=== PATIENT | female | born 1945 | race Caucasian/White ===

== ENCOUNTER 2021-07-19 21:19 | Inpatient (IN) | payer BC ==
[~2021-07-19] VITALS: Ht 154.9 cm; Wt 46.9 kg
--- NOTE | 2021-07-19 21:37 | NUR ---
Dr. Campa at bedside for MSE
[2021-07-19] MEDS ORDERED: IV NORMAL SALINE 1000 ML BAG IV ONE (22:00)
[2021-07-19] MEDS ORDERED: MORPHINE SULFATE 2 MG/1 ML DISP.SYRIN IV ONE (22:00)
[2021-07-19] MEDS ORDERED: ONDANSETRON 4 MG/2 ML VIAL IV ONE (22:00)
--- NOTE | 2021-07-19 22:02 | NUR ---
IV started and labs drawn. Pt tolerated well.
[2021-07-19] MEDS ORDERED: MORPHINE SULFATE 2 MG/1 ML DISP.SYRIN ONE (22:13)
[2021-07-19] MEDS ORDERED: ONDANSETRON 4 MG/2 ML VIAL ONE (22:14)
--- NOTE | 2021-07-19 22:22 | NUR ---
Morphine and Zofran given. Pt tolerated medications well with no adverse reactions.
[2021-07-19 22:23] LABS: HEMATOCRIT 42.7 % (31.2-41.9); MEAN CORPUSCULAR VOLUME 87.2 fL (75.5-95.3); PLATELET COUNT (AUTO) 235 K/uL (179-408)
[2021-07-19 22:34] LABS: CARBON DIOXIDE 28 mmol/L (21-32); CHLORIDE 99 mmol/L (98-107); CREATININE 0.8 mg/dL (0.6-1.3); GLUCOSE 98 mg/dL (74-106); POTASSIUM 3.7 mmol/L (3.5-5.1); UREA NITROGEN, BLOOD 17 mg/dL (7-18)
[2021-07-19 22:43] LABS: ALANINE AMINOTRANSFERASE 26 U/L (14-59); ALKALINE PHOSPHATASE 87 U/L (50-136); ASPARTATE AMINOTRANSFERASE 43 U/L (15-37); BILIRUBIN,DIRECT 0.4 mg/dL (0.0-0.2); BILIRUBIN,TOTAL 2.5 mg/dL (0.2-1.0); TOTAL PROTEIN, SERUM 7.5 g/dL (6.4-8.2)
[2021-07-19 22:47] LABS: THYROID STIMULATING HORMONE 0.832 mIU/mL (0.358-3.740)
--- NOTE | 2021-07-19 22:50 | NUR ---
Called to page director of national sales Ortho, line is busy.
--- NOTE | 2021-07-19 23:00 | NUR ---
Called again for front counter attendant ortho, line is still busy.
--- NOTE | 2021-07-20 00:02 | NUR ---
Paged Geeta Terry NP for [facility].
[2021-07-20] MEDS ORDERED: ONDANSETRON 4 MG/2 ML VIAL IV PRN (00:15)
[2021-07-20] MEDS ORDERED: REMEDY ESSENTIAL ZINC PASTE 113 GM TP PRN (00:15)
[2021-07-20] MEDS ORDERED: MAGNESIUM HYDROXIDE 30 ML LIQUID UDC PO PRN (00:15)
[2021-07-20] MEDS ORDERED: IV D5 1/2 NS 1000 ML 1,000 ML IV PRN (00:15)
--- NOTE | 2021-07-20 00:25 | NUR ---
Watters catheter inserted with sterile technique.
--- NOTE | 2021-07-20 00:47 | NUR ---
Med surg bed assigned 310 to Dahiana VERA
--- NOTE | 2021-07-20 00:59 | NUR ---
Gave report to Dahiana VERA
[2021-07-20 01:15] LABS: *BILIRUBIN,URIN NEGATIVE (NEGATIVE); *BLOOD, URINE 2+ (NEGATIVE); *CLARITY,URINE CLEAR (CLEAR); *COLOR,URINE YELLOW (YELLOW); *KETONES,URINE 3+ (NEGATIVE); *UROBILINOGEN,URINE 0.2 E.U./dl (NORMAL); LEUKOCYTE ESTERASE ,URINE NEGATIVE (NEGATIVE); NITRITE, URINE NEGATIVE (NEGATIVE); PH,URINE 5.5 (5.0-8.0); UGLUCOSE NEGATIVE (NEGATIVE)
--- NOTE | 2021-07-20 02:01 | NUR ---
Pt. admitted to [facility] room 310, under care of Geeta Terry MILL HELPER Belongs List completed. Transported in stable condition. No distress noted. No changes in LOC during transfer.
--- NOTE | 2021-07-20 02:04 | NUR ---
Received pt from er via [employer]. Under the care of Geeta Terry DNP. Dx: Femur Fracture. Pt in no acute distress. Pt awake, alert and orientedx4. Pt have gonzalez catheter inserted in ER. Pt on room air. FPC assessment done. Pt know she's on NPO. Admission process and care plan initiated. Belonging list done. Safety and comfort provided. Will continue to monitor.
[2021-07-20 02:21] VITALS: BP 95/44
[2021-07-20] MEDS: MORPHINE SULFATE 2 MG/1 ML DISP.SYRIN IV PRN ×2 (03:21→22:15)
--- NOTE | 2021-07-20 04:37 | NUR ---
at 0310h pt was given Morphine sulfate inj 1mg for left hip pain. Pt tolerated it well. After an hour pt stated it helps but there still pain. Will continue to monitor.
[2021-07-20 04:53] VITALS: BP 108/57
--- NOTE | 2021-07-20 06:23 | NUR ---
Pt slept intermittently. Pt in no acute distress. Iv intact. Safety and comfort provided. Will endorse to incoming nurse for continuity of care.
[2021-07-20 06:37] LABS: HEMATOCRIT 34.4 % (31.2-41.9); MEAN CORPUSCULAR HEMOGLOBIN 30.2 uug (24.7-32.8); PLATELET COUNT (AUTO) 185 K/uL (179-408)
[2021-07-20 07:16] LABS: BILIRUBIN,TOTAL 1.4 mg/dL (0.2-1.0); CREATININE 0.7 mg/dL (0.6-1.3); MAGNESIUM 2.2 mg/dL (1.8-2.4); POTASSIUM 3.2 mmol/L (3.5-5.1); TOTAL PROTEIN, SERUM 5.8 g/dL (6.4-8.2)
[2021-07-20 07:23] LABS: THYROID STIMULATING HORMONE 0.976 mIU/mL (0.358-3.740)
[2021-07-20] MEDS: PANTOPRAZOLE SODIUM 40 MG VIAL IV SCH (09:03)
[2021-07-20 09:22] LABS: BACTERIA,URINE FEW /HPF (NONE SEEN); SQUAMOUS EPITHELIAL CELL,UR FEW /HPF (NONE SEEN); WBC,URINE NONE SEEN /HPF (0-3)
[2021-07-20] MEDS ORDERED: POTASSIUM CHLORIDE 20 MEQ TAB.PRT.SR PO ONE (10:15)
[2021-07-20 11:59] VITALS: BP 106/54
[2021-07-20] MEDS: POTASSIUM CHLORIDE 10 MEQ, LIDOCAINE-MPF 1% 1 ML in IV DEXTROSE 5% 100 ML IV SCH ×2 (12:16→13:24)
[2021-07-20 16:49] VITALS: BP 103/51
[2021-07-20] MEDS: IV D5 1/2 NS 1000 ML 1,000 ML IV PRN (17:44)
--- NOTE | 2021-07-20 19:30 | NUR ---
Received pt awake , alert and orientedx4. Pt in no acute distress. Iv intact. safety and comfort provided. Will continue to monitor.
[2021-07-20 20:41] VITALS: BP 131/55
--- NOTE | 2021-07-20 23:50 | NUR ---
Pt given Morphine 1mg prn at 2215H for pain . Pt tolerated it well. After an hour pt stated it felt ab bit better but there's still pain. Will continue to monitor.
[2021-07-21] MEDS: ACETAMINOPHEN 325 MG TABLET PO PRN (00:19)
--- NOTE | 2021-07-21 00:19 | NUR ---
Pt given Tylenol 650 mg prn as per pt is still in pain. Pt tolerated it well. Will continue to monitor.Npo for pt after given the pain medications.
[2021-07-21] MEDS: IV D5 1/2 NS 1000 ML 1,000 ML IV PRN ×2 (04:35→20:44)
[2021-07-21 05:04] VITALS: BP 106/54
--- NOTE | 2021-07-21 06:48 | NUR ---
Pt shows no signs of acute distress. Pt on room air. Iv intact. Prescribed medication given and pt tolerated it well. Safety and comfort provided. All needs are met. Will endorse to incoming nurse for continuity of care.
[2021-07-21] MEDS ORDERED: ROCURONIUM BROMIDE 50 MG/5 ML VIAL ONE (07:12)
[2021-07-21] MEDS ORDERED: MIDAZOLAM HCL 2 MG/2 ML VIAL ONE (07:12)
[2021-07-21] MEDS ORDERED: FENTANYL CITRATE 100 MCG/2 ML AMPUL ONE (07:12)
[2021-07-21 07:30] LABS: HEMATOCRIT 31.9 % (31.2-41.9); MEAN CORPUSCULAR HEMOGLOBIN 31.1 uug (24.7-32.8); MEAN CORPUSCULAR VOLUME 87.8 fL (75.5-95.3); PLATELET COUNT (AUTO) 156 K/uL (179-408)
--- NOTE | 2021-07-21 07:33 | NUR ---
PT WENT TO OR VIA BED FOR SURGERY IN STABLE CONDITION
[2021-07-21] MEDS ORDERED: BUPIVACAINE 0.25% 30 ML VIAL ONE (07:38)
[2021-07-21 07:46] LABS: CREATININE 0.8 mg/dL (0.6-1.3); MAGNESIUM 2.1 mg/dL (1.8-2.4); POTASSIUM 3.6 mmol/L (3.5-5.1)
[2021-07-21] MEDS: PANTOPRAZOLE SODIUM 40 MG VIAL IV SCH (08:25)
[2021-07-21] MEDS ORDERED: ONDANSETRON 4 MG/2 ML VIAL IV ONE (10:06)
[2021-07-21] MEDS ORDERED: LIDOCAINE-MPF 2% 5 ML VIAL IJ ONE (10:06)
[2021-07-21] MEDS ORDERED: GLYCOPYRROLATE 0.2 MG/ML VIAL IJ ONE (10:06)
[2021-07-21] MEDS ORDERED: PROPOFOL 200 MG/20 ML BOTTLE IV ONE (10:06)
[2021-07-21] MEDS ORDERED: SEVOFLURANE 250 ML BOTTLE IH ONE (10:06)
[2021-07-21] MEDS ORDERED: METOCLOPRAMIDE HCL 10 MG/2 ML VIAL IV ONE (10:06)
[2021-07-21] MEDS ORDERED: NEOSTIGMINE METHYLSULFATE 10 MG/10 ML VIAL IM ONE (10:06)
[2021-07-21] MEDS ORDERED: CEFAZOLIN 1 G VIAL IM ONE (10:06)
[2021-07-21] MEDS ORDERED: MEPERIDINE 25 MG/1 ML DISP.SYRIN ONE (10:31)
[2021-07-21 11:29] LABS: HEMATOCRIT 36.9 % (31.2-41.9)
[2021-07-21 11:40] VITALS: BP 139/44
--- NOTE | 2021-07-21 11:40 | NUR ---
PT RECEIVED FROM RECOVERY ROOM IN STABLE CONDITION.VS ARE STABLE
[2021-07-21 11:55] VITALS: BP 119/50
[2021-07-21 12:45] VITALS: BP 137/55
[2021-07-21 13:32] LABS: THYROID STIMULATING HORMONE 0.01 mIU/mL (0.358-3.740)
[2021-07-21] MEDS: HYDROCODONE/APAP 5-325MG TABLET PO PRN (14:10)
[2021-07-21] MEDS ORDERED: NEUTRA PHOS PACKET PO ONE (15:15)
[2021-07-21] MEDS: CEFAZOLIN 1 G in IV DEXTROSE 5% 50 ML IV SCH ×2 (15:35→23:33)
[2021-07-21 16:00] VITALS: BP 102/58
[2021-07-21] MEDS: RIVAROXABAN 10 MG TABLET PO SCH (17:07)
[2021-07-21 20:00] VITALS: BP 108/48
[2021-07-21] MEDS: MORPHINE SULFATE 2 MG/1 ML DISP.SYRIN IV PRN (22:05)
[2021-07-22 04:00] VITALS: BP 123/59
[2021-07-22] MEDS: HYDROCODONE/APAP 5-325MG TABLET PO PRN ×2 (06:02→22:39)
[2021-07-22 07:14] LABS: HEMATOCRIT 31.3 % (31.2-41.9); MEAN CORPUSCULAR HEMOGLOBIN 30.6 uug (24.7-32.8); MEAN CORPUSCULAR VOLUME 87.6 fL (75.5-95.3); PLATELET COUNT (AUTO) 200 K/uL (179-408)
[2021-07-22 07:28] LABS: CREATININE 0.8 mg/dL (0.6-1.3); POTASSIUM 3.5 mmol/L (3.5-5.1)
--- NOTE | 2021-07-22 07:30 | NUR ---
Received patient in bed awake, alert and oriented times4. Pt is on room air. No sign of discuss noted at this time. Safety precautions implemented. Will continue to monitor.
[2021-07-22] MEDS: PANTOPRAZOLE SODIUM 40 MG VIAL IV SCH (08:23)
[2021-07-22] MEDS: MORPHINE SULFATE 2 MG/1 ML DISP.SYRIN IV PRN (08:24)
[2021-07-22] MEDS: IV D5 1/2 NS 1000 ML 1,000 ML IV PRN ×2 (10:29→22:43)
[2021-07-22 12:19] VITALS: BP 114/47
[2021-07-22 17:13] VITALS: BP 109/46
[2021-07-22] MEDS: RIVAROXABAN 10 MG TABLET PO SCH (17:54)
[2021-07-22 20:15] VITALS: BP 125/56
[2021-07-23] MEDS: MORPHINE SULFATE 2 MG/1 ML DISP.SYRIN IV PRN ×2 (01:39→05:07)
[2021-07-23] MEDS ORDERED: LORAZEPAM 2 MG/1 ML VIAL IV ONE (01:45)
[2021-07-23] MEDS ORDERED: HALOPERIDOL LACTATE 5 MG/1 ML VIAL IM ONE (02:00)
[2021-07-23] MEDS ORDERED: HALOPERIDOL DECANOATE 50 MG/1 ML AMPUL IM ONE (02:00)
--- NOTE | 2021-07-23 03:17 | NUR ---
Awake alert and oriented x 3-4 upon initial rounds. Patient S/P left hip IM nailing (07/21) by Dr Ballesteros. IVF's infusing well via left arm heplock. IV got infiltrated #20 Rt INT inserted. Complained of pain Peculiar 1 tab given as ordered. Needs attended. Incontinent of urine x2. Kept clean and dry.VSS. At around 0030 patient gets confused and agitated. Dr Robles aware. Ativan ordered but d/c'ed Patient pulled IV out. Haldol 2.5 mg given IM once. Will monitor patient. Patient calm and quiet and fall asleep. Bed alarm on.
--- NOTE | 2021-07-23 05:08 | NUR ---
addendum: ,orphine not given, no IV access. Addendum: 07/23/21 at 0623 by JOSE LUIS PATEL RN Morphine not given, no IV access
[2021-07-23] MEDS: PANTOPRAZOLE SODIUM 40 MG TABLET.DR PO SCH (06:16)
--- NOTE | 2021-07-23 06:24 | NUR ---
Patient asleep for a couple of hours. No behavioral nor any agitation noted. Woke up for vital signs, refused everything including AM changed and repositioned and patient again refused it, she said she wanted to go home and wants to be left alone, refused to be touched.
--- NOTE | 2021-07-23 07:51 | NUR ---
Per security shift manager, Morphine was not administered at 139 am due to no IV access. Medication was wasted on omnicell per night night nurse. Pharmacy was notified.
--- NOTE | 2021-07-23 09:10 | NUR ---
Pt is a/o x 3, calm this morning, able to lift herself upwards for bedpan placement. Pt wanted to be independent with using bedpan and has not been agitated this morning. PA assessed pt and changed wound dressing. No IV access due to pt refusal. Comfort measures provided, call light within reach. Will continue to monitor.
--- NOTE | 2021-07-23 09:45 | NUR ---
pt refuses for iv reinsertion, refuses picture to be taken of wound. MD notified.
[2021-07-23 10:25] LABS: HEMATOCRIT 32.2 % (31.2-41.9); MEAN CORPUSCULAR HEMOGLOBIN 30.3 uug (24.7-32.8); MEAN CORPUSCULAR VOLUME 87.5 fL (75.5-95.3); PLATELET COUNT (AUTO) 242 K/uL (179-408)
[2021-07-23 11:04] LABS: CREATININE 0.8 mg/dL (0.6-1.3); POTASSIUM 3.6 mmol/L (3.5-5.1)
[2021-07-23 11:43] VITALS: BP 125/60
[2021-07-23 16:46] VITALS: BP 120/56
[2021-07-23] MEDS ORDERED: LORAZEPAM 0.5 MG TABLET PO PRN (17:15)
[2021-07-23] MEDS: RIVAROXABAN 10 MG TABLET PO SCH (18:24)
--- NOTE | 2021-07-23 19:30 | NUR ---
Received pt awake, alert and orientedx3. Pt in no acute distress. Pt on room air. Iv intact. Safety and comfort provided. Will continue to monitor.
[2021-07-23 20:00] VITALS: BP 118/59
--- NOTE | 2021-07-23 20:00 | NUR ---
Iv reinserted to Left [id number] g. Iv intact.
[2021-07-23] MEDS: ACETAMINOPHEN 325 MG TABLET PO PRN (20:31)
[2021-07-23] MEDS ORDERED: MIRTAZAPINE 15 MG TABLET PO SCH (21:00)
[2021-07-24 04:00] VITALS: BP 139/62
[2021-07-24] MEDS: PANTOPRAZOLE SODIUM 40 MG TABLET.DR PO SCH (06:16)
--- NOTE | 2021-07-24 06:17 | NUR ---
Pt slept intermittently. Pt in no acute distress. Iv intact.Pt have episodes of forgetfulness . Pt needs reorientation. Dressing intact .Prescribed medication given and pt tolerated it well. Safety and comfort provided. All needs are met. Pt had no hematuria noted.
[2021-07-24 12:00] VITALS: BP 109/56
[2021-07-24 12:09] LABS: HEMATOCRIT 30.6 % (31.2-41.9)
[2021-07-24 12:13] LABS: CREATININE 0.7 mg/dL (0.6-1.3); POTASSIUM 3.7 mmol/L (3.5-5.1)
[2021-07-24 16:00] VITALS: BP 121/60
[2021-07-24] MEDS: RIVAROXABAN 10 MG TABLET PO SCH (18:29)
--- NOTE | 2021-07-24 18:29 | NUR ---
Pt is being [facility] steel pickler scheduled for 1829 but pending arrival. Pt is a/o 3, confused and forgetful at times. Pt has been given discharge education, materials being sent to facility along with medication list and discharge summary. IV/ID band removed. pt does not appear in acute distress. report attempted to be called to [facility] and [facility] at but no answer. I left message with hospital number for facility to call back for report. Pt has been accepted to bed 6A, transport through [facility] ambulance. Will endorse to operations scheduler if not discharged by end of shift.
--- NOTE | 2021-07-24 19:25 | NUR ---
Called report nurse Jeni at [facility] and rehab. Transport by [facility] ambulance. vitals: 99/51 Hr 99 SpO2 96% room air.
== END 2021-07-24 19:25 | DRG 480 ==
LOC: ER 21:22 → MEDSURG3 07-20 01:24
PROVIDERS: ADMIT Nurse Practitioner Acute Care; ATTEND Nurse Practitioner Acute Care
PROC: 0QS706Z Reposition Left Upper Femur with Intramedullary Internal Fixation Device, Open Approach (ICD-10-PCS; principal; 2021-07-21)
DX: S72.142A Displaced intertrochanteric fracture of left femur, initial encounter for closed fracture (principal); E43 Unspecified severe protein-calorie malnutrition; M62.82 Rhabdomyolysis; Z68.1 Body mass index [BMI] 19.9 or less, adult; R64 Cachexia; F03.91 Unspecified dementia, unspecified severity, with behavioral disturbance; Z96.653 Presence of artificial knee joint, bilateral; D72.829 Elevated white blood cell count, unspecified; E87.6 Hypokalemia; E88.09 Other disorders of plasma-protein metabolism, not elsewhere classified; J45.909 Unspecified asthma, uncomplicated; Z20.822 Contact with and (suspected) exposure to COVID-19; Z79.01 Long term (current) use of anticoagulants; W18.30XA Fall on same level, unspecified, initial encounter; Y93.H2 Activity, gardening and landscaping; Y92.007 Garden or yard of unspecified non-institutional (private) residence as the place of occurrence of the external cause; M62.50 Muscle wasting and atrophy, not elsewhere classified, unspecified site; F43.23 Adjustment disorder with mixed anxiety and depressed mood
CPT/HCPCS: 36415; 51702; 71045; 73501; 73502; 73503; 73551; 73700; 83735; 84100; 84443; 84484; 85018; 85025; 85730; 93005; 93307; 97161; A4663; A6209; C1713; C1758; C9113; G0378; J0690; J1630; J2001; J2175; J2250; J2270; J2405; J2765; J3010; J3480; J3490; J7040

== ENCOUNTER 2021-07-27 22:13 | Inpatient (IN) | payer BC ==
[~2021-07-27] VITALS: Ht 157.5 cm; Wt 48.1 kg
[2021-07-27 23:05] LABS: HEMATOCRIT 37.1 % (31.2-41.9); MEAN CORPUSCULAR VOLUME 87.8 fL (75.5-95.3); PLATELET COUNT (AUTO) 456 K/uL (179-408)
[2021-07-27 23:08] LABS: CARBON DIOXIDE 30 mmol/L (21-32); CHLORIDE 99 mmol/L (98-107); CREATININE 0.9 mg/dL (0.6-1.3); GLUCOSE 116 mg/dL (74-106); POTASSIUM 3.9 mmol/L (3.5-5.1); UREA NITROGEN, BLOOD 18 mg/dL (7-18)
[2021-07-27] MEDS ORDERED: ONDANSETRON 4 MG/2 ML VIAL IV ONE (23:15)
[2021-07-27] MEDS ORDERED: MORPHINE SULFATE 2 MG/1 ML DISP.SYRIN IV ONE (23:15)
[2021-07-27 23:21] LABS: ALANINE AMINOTRANSFERASE 75 U/L (14-59); ALKALINE PHOSPHATASE 108 U/L (50-136); ASPARTATE AMINOTRANSFERASE 43 U/L (15-37); BILIRUBIN,DIRECT 0.3 mg/dL (0.0-0.2); BILIRUBIN,TOTAL 1.4 mg/dL (0.2-1.0); TOTAL PROTEIN, SERUM 7.6 g/dL (6.4-8.2)
[2021-07-27] MEDS ORDERED: ONDANSETRON 4 MG/2 ML VIAL ONE (23:21)
[2021-07-27] MEDS ORDERED: MORPHINE SULFATE 2 MG/1 ML DISP.SYRIN ONE (23:22)
[2021-07-28] MEDS ORDERED: LORAZEPAM 2 MG/1 ML VIAL IV ONE (00:45)
[2021-07-28] MEDS ORDERED: HALOPERIDOL LACTATE 5 MG/1 ML VIAL IV ONE (01:00)
[2021-07-28] MEDS ORDERED: diphenhydrAMINE 50 MG/1 ML VIAL IV ONE (01:00)
--- NOTE | 2021-07-28 01:00 | NUR ---
Patient is altered, she believes she is in the dental office and wants to go home. Provide comfort and safety measures.
[2021-07-28] MEDS ORDERED: diphenhydrAMINE 50 MG/1 ML VIAL ONE (01:08)
[2021-07-28] MEDS ORDERED: HALOPERIDOL LACTATE 5 MG/1 ML VIAL ONE (01:09)
[2021-07-28] MEDS ORDERED: ACET-2154 PO (01:36)
[2021-07-28] MEDS ORDERED: MAGN400O6 PO (01:36)
[2021-07-28] MEDS ORDERED: RIVA20TA PO (01:36)
[2021-07-28] MEDS ORDERED: PANT40TA49 PO (01:36)
[2021-07-28] MEDS ORDERED: HYDR-3972 PO (01:36)
--- NOTE | 2021-07-28 02:00 | NUR ---
Alison Robles [employer] ENGINE[employer] insulation engineman accepted patient.
--- NOTE | 2021-07-28 03:56 | NUR ---
Patient sleeping with no distress noted.
--- NOTE | 2021-07-28 05:00 | NUR ---
Patient confused, pulled out hep lock on left forearm.
[2021-07-28] MEDS ORDERED: ONDANSETRON 4 MG/2 ML VIAL IV PRN (05:45)
[2021-07-28] MEDS ORDERED: PANTOPRAZOLE SODIUM 40 MG TABLET.DR PO ONE (08:59)
[2021-07-28] MEDS ORDERED: MAGNESIUM HYDROXIDE 30 ML LIQUID UDC PO PRN (09:00)
[2021-07-28] MEDS ORDERED: PANTOPRAZOLE SODIUM 40 MG TABLET.DR PO SCH (09:00)
--- NOTE | 2021-07-28 09:23 | NUR ---
REMAINS CONFUSED, PULLED OUT HER MONITOR LEADS AND PULS OX - REFUSING EVERYTHING.
--- NOTE | 2021-07-28 09:25 | NUR ---
TOLERATED BREAKFAST - STILL UNABLE TO OBTAIN URINE SPECIMEN - PT REMAINS UNCOOPERATIVE.
--- NOTE | 2021-07-28 10:45 | NUR ---
PT HERE; ASSISTED PT TO AMBULATE WITH WALKER, TOLERATED WELL WITH ASSISTANCE.
--- NOTE | 2021-07-28 10:54 | NUR ---
PT AMBULATED TO BATHROOM; URINE SPECIMEN COLLECTED AND SENT TO LAB.
[2021-07-28 11:33] LABS: *BILIRUBIN,URIN NEGATIVE (NEGATIVE); *BLOOD, URINE 2+ (NEGATIVE); *CLARITY,URINE CLEAR (CLEAR); *COLOR,URINE YELLOW (YELLOW); *KETONES,URINE TRACE (NEGATIVE); LEUKOCYTE ESTERASE ,URINE 1+ (NEGATIVE); NITRITE, URINE NEGATIVE (NEGATIVE); UGLUCOSE NEGATIVE (NEGATIVE)
[2021-07-28 15:34] LABS: BACTERIA,URINE FEW /HPF (NONE SEEN); RBC,URINE 20-50 /HPF (0-3); SQUAMOUS EPITHELIAL CELL,UR FEW /HPF (NONE SEEN)
[2021-07-28] MEDS: RIVAROXABAN 10 MG TABLET PO SCH (18:20)
[2021-07-28] MEDS ORDERED: RIVAROXABAN 10 MG TABLET ONE (18:22)
--- NOTE | 2021-07-28 20:21 | NUR ---
Patient was transport to 3rd floor by nursing supervisor [employer]products via hospital bed.
--- NOTE | 2021-07-28 20:45 | NUR ---
RECEIVED PATIENT VIA GURNEY FROM ER. PATIENT IS A/O X2, FORGETFUL AT TIMES. VS WNL. H/L INTACT AND PATENT, NOTED TO LEFT WRIST. DENIES ANY PAIN OR DISCOMFORT. NO RESP. DISTRESS NOTED. CALL LIGHT IN REACH. ALL NEEDS ATTENDED. WILL CONTINUE TO MONITOR AND ASSESS.
[2021-07-28 20:50] VITALS: BP 141/63
[2021-07-28] MEDS ORDERED: Medication Not On Formulary EA (Rivaroxaban (Xarelto) 10 MG) PO SCH (21:00)
[2021-07-28] MEDS: IV NS 1000 ML 1,000 ML IV PRN (21:51)
[2021-07-28] MEDS ORDERED: diphenhydrAMINE 50 MG/1 ML VIAL IV PRN (22:00)
[2021-07-28] MEDS ORDERED: CEFTRIAXONE 1 G VIAL ONE (23:26)
[2021-07-28] MEDS: CEFTRIAXONE 1 G in IV DEXTROSE 5% 50 ML IV SCH (23:35)
--- NOTE | 2021-07-29 03:00 | NUR ---
PATIENT AWAKE IN BED. VERY AGITATED. PATIENT GIVEN HALDOL 3MG IM PRN FOR AGITATION. BED ALARM ON. CALL LIGHT IN REACH. ALL NEEDS ATTENDED. WILL CONTINUE TO MONITOR AND ASSESS.
[2021-07-29] MEDS: HALOPERIDOL LACTATE 5 MG/1 ML VIAL IM PRN (03:29)
--- NOTE | 2021-07-29 04:00 | NUR ---
IV NOTED TO LEFT FA, LEAKING. REMOVED. PATIENT IS REFUSING FOR IV TO BE INSERTED AT THIS TIME. [employer]WEALTH ATTORNEY NOTIFIED. WILL CONTINUE TO MONITOR AND ASSESS.
[2021-07-29] MEDS: PANTOPRAZOLE SODIUM 40 MG TABLET.DR PO SCH (06:32)
[2021-07-29 06:54] LABS: MEAN CORPUSCULAR VOLUME 88.3 fL (75.5-95.3); PLATELET COUNT (AUTO) 379 K/uL (179-408)
[2021-07-29 07:12] LABS: CREATININE 0.8 mg/dL (0.6-1.3); MAGNESIUM 2.2 mg/dL (1.8-2.4); PHOSPHOROUS 3.7 mg/dL (2.5-4.9); POTASSIUM 3.7 mmol/L (3.5-5.1)
[2021-07-29 11:30] VITALS: BP 117/54
--- NOTE | 2021-07-29 11:30 | NUR ---
Received patient from nurse at this time for continuity of care. Patient is alert, not in any form of distress on room air. No complain of any discomfort. Assisted with her needs. Call light and frequently used items placed within patient's reach.
[2021-07-29 16:53] VITALS: BP 120/53
[2021-07-29] MEDS: RIVAROXABAN 10 MG TABLET PO SCH (17:02)
--- NOTE | 2021-07-29 20:00 | NUR ---
Received patient in bed, alert no complain of pain at this time, patient allowed new iv line to be inserted, tolerate well, orient patient not pulled it out due to she needs abx for her UTI, able to follow, patient calm and cooperative at this time, cont to monitor.
[2021-07-29 20:03] VITALS: BP 121/61
[2021-07-29] MEDS: CEFTRIAXONE 1 G in IV DEXTROSE 5% 50 ML IV SCH (23:19)
[2021-07-30] MEDS: IV NS 1000 ML 1,000 ML IV PRN ×2 (03:31→22:34)
--- NOTE | 2021-07-30 03:51 | NUR ---
Patient asleep but arousable, no complain of pain, sleep well, cont on IV hydration, no coughing no congestion noted, voiding well, with yellow color urine, no odor, no hematuria noted, cont to monitor.
[2021-07-30 04:09] VITALS: BP 132/65
[2021-07-30] MEDS: ACETAMINOPHEN 325 MG TABLET PO PRN ×2 (04:19→22:31)
[2021-07-30] MEDS: PANTOPRAZOLE SODIUM 40 MG TABLET.DR PO SCH (06:23)
[2021-07-30 11:21] VITALS: BP 125/50
[2021-07-30 15:56] VITALS: BP 121/61
[2021-07-30] MEDS: RIVAROXABAN 10 MG TABLET PO SCH (16:13)
--- NOTE | 2021-07-30 18:40 | NUR ---
Patient received care well throughout shift with no signs of distress or pain. Patient to receive midline due to failed attempts of peripheral line during shift. Skin is intact. L. ORIF dressing still dry and in place. Bed left in lowest position with call light within reach. Comfort measures provided. Will endorse information to PM nurse.
--- NOTE | 2021-07-30 19:30 | NUR ---
Patient alert no complain of pain at this time, midline intact, on IV hydration tolerate well, afebrile, cont to monitor.
[2021-07-30 20:24] VITALS: BP 98/61
--- NOTE | 2021-07-30 22:57 | NUR ---
PATIENT COMPLAIN OF SEVERE PAIN ON HER LEFT HIP AND BLADDER PAIN DUE TO UTI, NOTIFY RUPERTO CAREY WITH NEW ORDER.
[2021-07-30] MEDS: HYDROCODONE/APAP 10-325 MG TABLET PO PRN (23:23)
[2021-07-30] MEDS: CEFTRIAXONE 1 G in IV DEXTROSE 5% 50 ML IV SCH (23:25)
--- NOTE | 2021-07-31 03:29 | NUR ---
Patient asleep but arousable, no complain of pain at this time, cont IV abx for UTI with no adverse reaction noted, reposition, cont to monitor.
[2021-07-31 04:00] VITALS: BP 131/51
[2021-07-31] MEDS: PANTOPRAZOLE SODIUM 40 MG TABLET.DR PO SCH (06:08)
[2021-07-31 06:18] LABS: HEMATOCRIT 32.5 % (31.2-41.9); MEAN CORPUSCULAR VOLUME 89.1 fL (75.5-95.3); PLATELET COUNT (AUTO) 365 K/uL (179-408)
[2021-07-31 06:38] LABS: CREATININE 0.7 mg/dL (0.6-1.3); POTASSIUM 4.4 mmol/L (3.5-5.1)
[2021-07-31 11:34] VITALS: BP 141/53
[2021-07-31 12:00] VITALS: BP 122/54
[2021-07-31] MEDS: HYDROCODONE/APAP 10-325 MG TABLET PO PRN ×2 (15:08→23:57)
[2021-07-31] MEDS: RIVAROXABAN 10 MG TABLET PO SCH (16:29)
--- NOTE | 2021-07-31 17:45 | NUR ---
Patient complained of pain in her heals and I put Absorbent foam on her both heels to reduce pressure off her heels. Patient is feeling much better immediately. Will continue to monitor
[2021-07-31 20:00] VITALS: BP 121/50
[2021-07-31] MEDS: CEFTRIAXONE 1 G in IV DEXTROSE 5% 50 ML IV SCH (23:50)
[2021-08-01 04:00] VITALS: BP 118/53
[2021-08-01] MEDS: PANTOPRAZOLE SODIUM 40 MG TABLET.DR PO SCH (06:13)
[2021-08-01 12:17] VITALS: BP 117/52
[2021-08-01] MEDS ORDERED: RIVA10TA PO (12:32)
[2021-08-01] MEDS ORDERED: PANT40TA49 PO (12:32)
[2021-08-01] MEDS ORDERED: HYDR-3980 PO (12:32)
[2021-08-01] MEDS ORDERED: ACET325T53 PO (12:32)
--- NOTE | 2021-08-01 15:26 | NUR ---
tried to give report to [facility], unablel to reach, tired multiple times
[2021-08-01] MEDS: HYDROCODONE/APAP 10-325 MG TABLET PO PRN (15:52)
[2021-08-01 15:54] VITALS: BP 114/60
[2021-08-01] MEDS: RIVAROXABAN 10 MG TABLET PO SCH (16:00)
[2021-08-01] MEDS: HALOPERIDOL LACTATE 5 MG/1 ML VIAL IM PRN (16:11)
--- NOTE | 2021-08-01 17:02 | NUR ---
report given to Rogelio from [facility]. patient was agreed to go to [facility] earlier, however suddenly stated she does not want to go once the ambulance was here, and became very agitated, sustained skin tear to right forearm, dressing done, no active bleeding noted, redirected, tried to calm down, noneffective, Haldol IM administered as ordered, effective. sent ambulance back, patient agreed to go, case preparer and liner arranged another ambulance for 1829. kept patient safe and comfortable. stable condition, no acute distress noted.
--- NOTE | 2021-08-01 19:33 | NUR ---
patient is alert, oriented x4, no sob, resp even nonlabored,skin warm and dry to touch, no acute distress noted, patient agreed to go to facility, cooperative, patient is picked up by [facility] ambulance.
== END 2021-08-01 19:36 | DRG 871 ==
LOC: ER 22:16 → TRANSITION 07-28 01:00 → MEDSURG3 07-28 20:06
PROVIDERS: ADMIT Internal Medicine; ATTEND Nurse Practitioner Acute Care
PROC: 05H633Z Insertion of Infusion Device into Left Subclavian Vein, Percutaneous Approach (ICD-10-PCS; principal; 2021-07-30)
PROC: B547ZZA Ultrasonography of Left Subclavian Vein, Guidance (ICD-10-PCS; 2021-07-30)
DX: A41.9 Sepsis, unspecified organism (principal); G93.41 Metabolic encephalopathy; N39.0 Urinary tract infection, site not specified; D68.59 Other primary thrombophilia; D64.9 Anemia, unspecified; D75.839 Thrombocytosis, unspecified; J45.909 Unspecified asthma, uncomplicated; M19.90 Unspecified osteoarthritis, unspecified site; Z20.822 Contact with and (suspected) exposure to COVID-19; F41.9 Anxiety disorder, unspecified; H54.61 Unqualified visual loss, right eye, normal vision left eye; Z91.81 History of falling; Z74.09 Other reduced mobility; R74.01 Elevation of levels of liver transaminase levels; K57.90 Diverticulosis of intestine, part unspecified, without perforation or abscess without bleeding; Z96.642 Presence of left artificial hip joint; F32.A Depression, unspecified; F29 Unspecified psychosis not due to a substance or known physiological condition
CPT/HCPCS: 36415; 71045; 83605; 83735; 84100; 84443; 84484; 85025; 85730; 87040; 87086; 93005; 97161; A4663; A6209; G0378; J0696; J1200; J1630; J2270; J2405; J7040; J7050